=== PATIENT | female | born 1980 | race African-American/Black ===

== ENCOUNTER 2021-08-17 21:09 | Emergency (ER) | payer MEDICAID ==
[~2021-08-17] VITALS: Ht 177.8 cm; Wt 77.0 kg
[2021-08-18] MEDS: ACETAMINOPHEN 325MG TABLET PO ONE (00:22)
[2021-08-18 00:49] LABS: CLARITY URINE CLEAR (CLEAR); COLOR URINE YELLOW (YELLOW); KETONES URINE TRACE (NEGATIVE); LEUKOCYTE ESTERASE URINE NEGATIVE (NEGATIVE); NITRITE URINE NEGATIVE (NEGATIVE); OCCULT BLOOD URINE NEGATIVE (NEGATIVE); PROTEIN URINE 2+ (NEGATIVE); SPECIFIC GRAVITY URINE 1.023 (1.005-1.030)
[2021-08-18] MEDS: IBUPROFEN 400MG TABLET PO ONE (01:10)
[2021-08-18 01:13] LABS: BASOPHILS % 0.5 % (0.0-2.0); EOSINOPHILS % 0.1 % (0.0-5.0); HEMATOCRIT. 43.7 % (36.0-48.0); HEMOGLOBIN. 14.8 g/dL (12.0-16.0); MEAN CORPUSCULAR HEMOGLOBIN 30.3 pg (28.0-32.0); MEAN CORPUSCULAR VOLUME 89.5 fL (81.0-99.0); MEAN PLATELET VOLUME 11.1 fl (7.4-10.4); MONOCYTES % 5.8 % (2.0-8.0); NEUTROPHILS % 80.6 % (40.0-76.0); PLATELET 197 x1000/uL (130-400); RED BLOOD CELL COUNT 4.88 mill/uL (4.2-5.4); RED CELL DISTRIBUTION WIDTH 15.6 % (11.6-14.6)
[2021-08-18] MEDS: AMLODIPINE 2.5MG TABLET PO ONE (01:18)
[2021-08-18 01:19] LABS: CHLORIDE 106 mEq/L (98-107)
[2021-08-18 01:45] VITALS: BP 186/114
[2021-08-18] MEDS ORDERED: AMLO2.5T45 MT (01:49)
== END 2021-08-18 02:00 | disposition home or self-care (01) ==
LOC: ER 21:09
DX: G44.209 Tension-type headache, unspecified, not intractable (principal); I10 Essential (primary) hypertension; F17.200 Nicotine dependence, unspecified, uncomplicated; F12.10 Cannabis abuse, uncomplicated; Z13.9 Encounter for screening, unspecified
CPT/HCPCS: 36415; 80048; 81003; 85025; 99284

== ENCOUNTER 2024-06-25 18:07 | Emergency (ER) | payer OTHER ==
[~2024-06-25] VITALS: Ht 167.6 cm; Wt 90.0 kg
[~2024-06-25 18:07] MED LIST: AMLO2.5T45 MT
[2024-06-25 18:09] VITALS: O2SAT 98
[2024-06-25] MEDS ORDERED: CLONIDINE 0.2MG TABLET PO ONE (18:45)
[2024-06-25 18:55] VITALS: BP 176/93; PULSE 75; RESP 14; TEMP 37.00296; O2SAT 97
[2024-06-25 19:01] LABS: EOSINOPHILS % 0.9 % (0.0-5.0); HEMATOCRIT. 42.9 % (36.0-48.0); HEMOGLOBIN. 14.5 g/dL (12.0-16.0); LYMPHOCYTES % 19.8 % (20.0-50.0); MEAN CORPUSCULAR HEMOGLOBIN 30.6 pg (28.0-32.0); MEAN CORPUSCULAR HGB CONC 33.9 g/dL (31.0-37.0); MEAN CORPUSCULAR VOLUME 90.1 fL (81.0-99.0); MONOCYTES % 4.5 % (2.0-8.0); NEUTROPHILS % 73.8 % (40.0-76.0); PLATELET 203 x1000/uL (130-400); RED BLOOD CELL COUNT 4.76 mill/uL (4.2-5.4); RED CELL DISTRIBUTION WIDTH 14.6 % (11.6-14.6); WHITE BLOOD COUNT 10.4 x1000/uL (4.5-11.0)
[2024-06-25 19:06] LABS: CHLORIDE 105 mEq/L (98-107); SODIUM 137 mEq/L (136-145)
[2024-06-25 19:07] LABS: CARBON DIOXIDE 28 mEq/L (21-32)
[2024-06-25 19:08] LABS: CALCIUM 9.3 mg/dL (8.7-10.4)
[2024-06-25] MEDS: CLONIDINE 0.1MG TABLET PO NR (19:08)
[2024-06-25 19:12] LABS: CREATININE 1.1 mg/dL (0.6-1.0); GLUCOSE 275 mg/dL (70-105)
[2024-06-25 19:13] LABS: TROPONIN I HIGH SENSITIVITY 12 ng/L (3.0-34); UREA NITROGEN BLOOD 10 mg/dL (9-23)
[2024-06-25] MEDS: POTASSIUM CHLORIDE 20MEQ/PACKET PO ONE (19:22)
[2024-06-25 19:43] LABS: HCG SCREEN NEGATIVE
[2024-06-25] MEDS: HYDRALAZINE 20MG/ML VIAL IV ONE (20:07)
[2024-06-25] MEDS ORDERED: POTA-205 MT (20:43)
== END 2024-06-25 21:01 | disposition home or self-care (01) ==
LOC: ER 18:07
DX: I10 Essential (primary) hypertension (principal); F12.10 Cannabis abuse, uncomplicated
CPT/HCPCS: 80048; 84703; 85025; 84484; 36415; 71045; 93005; 96374; 99285; J0360; Z7610

== ENCOUNTER 2024-12-13 10:04 | Emergency (ER) | payer MEDICAID, OTHER ==
[~2024-12-13] VITALS: Ht 170.2 cm; Wt 78.0 kg
[~2024-12-13 10:04] MED LIST changes: +POTA-205 MT
[2024-12-13 10:12] VITALS: O2SAT 98
[2024-12-13 10:18] VITALS: BP 203/135; PULSE 77; RESP 16; TEMP 37.1; O2SAT 100
[2024-12-13 11:51] LABS: BASOPHILS % 0.2 % (0.0-2.0); EOSINOPHILS % 1.2 % (0.0-5.0); HEMOGLOBIN. 14.9 g/dL (12.0-16.0); LYMPHOCYTES % 22.3 % (20.0-50.0); MEAN CORPUSCULAR HEMOGLOBIN 31.1 pg (28.0-32.0); MEAN CORPUSCULAR HGB CONC 33.8 g/dL (31.0-37.0); MEAN CORPUSCULAR VOLUME 92.1 fL (81.0-99.0); MEAN PLATELET VOLUME 11.5 fl (7.4-10.4); MONOCYTES % 6.4 % (2.0-8.0); NEUTROPHILS % 69.9 % (40.0-76.0); PLATELET 227 x1000/uL (130-400); RED BLOOD CELL COUNT 4.78 mill/uL (4.2-5.4); RED CELL DISTRIBUTION WIDTH 14.4 % (11.6-14.6); WHITE BLOOD COUNT 8.9 x1000/uL (4.5-11.0)
[2024-12-13 11:56] LABS: CHLORIDE 107 mEq/L (98-107); POTASSIUM 3.8 mEq/L (3.5-5.1); SODIUM 140 mEq/L (136-145)
[2024-12-13 11:57] LABS: CALCIUM 9.4 mg/dL (8.7-10.4); CARBON DIOXIDE 22 mEq/L (21-32); INR 0.9; PROTHROMBIN TIME 10.6 sec (9.6-11.0)
[2024-12-13 12:01] LABS: TROPONIN I HIGH SENSITIVITY 8 ng/L (3.0-34)
[2024-12-13 12:02] LABS: CREATININE 0.9 mg/dL (0.6-1.0); GLUCOSE 159 mg/dL (70-105); UREA NITROGEN BLOOD 9 mg/dL (9-23)
[2024-12-13 12:06] LABS: THYROID STIMULATING HORMONE 1.13 uIU/mL (0.55-4.78)
[2024-12-13 12:07] LABS: HCG SCREEN NEGATIVE
[2024-12-13 13:07] LABS: ETHANOL BLOOD < 10 mg/dL (<10)
[2024-12-13 15:54] LABS: TROPONIN I HIGH SENSITIVITY 11 ng/L (3.0-34)
[2024-12-13] MEDS ORDERED: ASPIRIN 325MG EC TABLET PO NR (16:00)
[2024-12-13] MEDS ORDERED: IOHEXOL-350 100 ML BOTTLE ONE (23:22)
[2024-12-14] MEDS ORDERED: ASPIRIN 325MG EC TABLET PO NR (00:30)
== END 2024-12-14 11:09 | disposition left against medical advice (07) ==
LOC: ER 10:04 → EDBEDREQ 16:13 → CANBEDREQ 16:22 → ER 16:22 → CANBEDREQ 12-14 10:05 → ER 12-14 11:09
DX: R53.1 Weakness (principal); R20.0 Anesthesia of skin; F12.90 Cannabis use, unspecified, uncomplicated; I10 Essential (primary) hypertension; Z79.899 Other long term (current) drug therapy
CPT/HCPCS: 80048; 80320; 82962; 84703; 83880; 84443; 85025; 85610; 84484; 36415; 71045; 70496; 70498; 70450; 93005; 99285; Q9967; Z7610; G0480